=== PATIENT | male | born 1995 | race Caucasian/White ===

== ENCOUNTER 2020-09-01 01:36 | Emergency (ER) | payer BC, OTHER ==
[~2020-09-01] VITALS: Ht 172.7 cm; Wt 81.6 kg
[2020-09-01 01:36] VITALS: BP_SYST 125
[2020-09-01] MEDS ORDERED: HYDROcodone/ACETAMIN 5-325 MG TAB (NORCO/ VICODIN) PO ONE (03:15)
[2020-09-01] MEDS ORDERED: AMOXICILLIN 500 MG CAPSULE PO ONE (03:15)
[2020-09-01 03:20] VITALS: BP_SYST 125
== END 2020-09-01 03:20 | disposition home or self-care (01) ==
LOC: SED 01:36
DX: S06.0X0A Concussion without loss of consciousness, initial encounter (principal); S02.69XA Fracture of mandible of other specified site, initial encounter for closed fracture; Y04.2XXA Assault by strike against or bumped into by another person, initial encounter; Y93.89 Activity, other specified; Y92.89 Other specified places as the place of occurrence of the external cause; Y99.8 Other external cause status
CPT/HCPCS: 70450-TC; 70486-TC; 99285